=== PATIENT | female | born 1990 | race Caucasian/White ===

== ENCOUNTER 2016-05-06 00:33 | Emergency (ER) | payer OTHER ==
[~2016-05-06] VITALS: Ht 162.6 cm; Wt 81.6 kg
[~2016-05-06 00:33] MED LIST: IBUPROFEN600 MG ORAL; NKM; VIBRAMYCIN100 MG ORAL
--- NOTE | 2016-05-06 00:57 | Emergency Room Report ---
History of Present Illness General Chief Complaint: Abdominal Pain Source: Patient Present Illness HPI Is a 25-year-old female with no past medical history. She presents with chief complaint abdominal pain. Onset last night. She said pain to the right side. [place] nauseous. A repeat 2 hours ago. Had diarrhea also. Subjective fever and chills. No cough or congestion. No urinary complaint. Pain is 7/10 cramping in nature. Localized the right side. Allergies: Coded Allergies: No Known Allergies (Unverified , 10/18/13) Patient History Past Medical History: none, see triage record, old chart reviewed Past Surgical History: none Pertinent Family History: none Social History: Denies: smoking Last Menstrual Period: Apr Now: No Immunizations: other Reviewed Nursing Documentation: PMH: Agreed, PSxH: Agreed Nursing Documentation-PMH Past Medical History: No Stated History Review of Systems Constitutional: Reports: fever Gastrointestinal: Reports: abdominal pain, diarrhea, nausea Physical Exam Vital Signs Date Time Temp Pulse Resp B/P Pulse Ox O2 Delivery O2 Flow Rate FiO2 05/06/16 00:40 98.2 83 18 121/73 99 Room Air vitals normal Sp02 EP Interpretation: reviewed, normal General Appearance: well appearing, no apparent distress, alert, obese Head: normocephalic, atraumatic Eyes: bilateral eye EOMI, bilateral eye PERRL ENT: hearing grossly normal, normal pharynx Neck: full range of motion, supple, no meningismus Respiratory: chest non-tender, lungs clear, normal breath sounds Cardiovascular #1: regular rate, rhythm, no murmur Gastrointestinal: normal bowel sounds, no mass, no organomegaly, no bruit, non- distended, tenderness - Mild, right lower quadrant/rright flank pain Musculoskeletal: back normal, gait/station normal, normal range of motion Psychiatric: mood/affect normal Skin: warm/dry Medical Decision Making Diagnostic Impression: Primary Impression: Abdominal pain of unknown etiology ER Course With abdominal pain and no diarrhea. Probably a viral gastroenteritis. No evidence of acute abdomen. She felt better now. We'll discharge home. Lab Results Impression labs normal CT/MRI/US Diagnostic Results CT/MRI/US Diagnostic Results : Imaging Test Ordered: CT abdomen and plvis Impression negative per radiologist Last Vital Signs Date Time Temp Pulse Resp B/P Pulse Ox O2 Delivery O2 Flow Rate FiO2 05/06/16 00:40 98.2 83 18 121/73 99 Room Air Status: improved Disposition: HOME, SELF-CARE Condition: Stable Patient Instructions: Abdominal Pain, Adult Additional Instructions: Followup with your Dr. in 2-3 days. Return if symptom worsen. HAMIDA HERNADEZ M.D. May 06, 2016 00:57
[2016-05-06] MEDS ORDERED: Ketorolac 30mg Inj IV ONE (01:00)
[2016-05-06 01:27] LABS: BASOPHILS % (AUTO) 0.9 % (0.0-2.0); LYMPHOCYTES % (AUTO) 38.7 % (20.0-45.0); MEAN CORPUSCULAR HEMOGLOBIN 29.9 PG (27.0-31.0); MEAN CORPUSCULAR HGB CONC 32.9 G/DL (32.0-36.0); MEAN CORPUSCULAR VOLUME 91 FL (80-99); MEAN PLATELET VOLUME 9.3 FL (6.5-10.1); MONOCYTES % (AUTO) 6.6 % (1.0-10.0); NEUTROPHILS % (AUTO) 52.9 % (45.0-75.0); PLATELET COUNT 240 K/UL (150-450); RED BLOOD COUNT 4.14 M/UL (4.20-5.40); RED CELL DISTRIBUTION WIDTH 11.9 % (11.6-14.8); WHITE BLOOD COUNT 9.3 K/UL (4.8-10.8)
[2016-05-06 01:28] LABS: APPEARANCE,URINE CLEAR; KETONES,URINE NEGATIVE (NEGATIVE); LEUKOCYTE ESTERASE ,URINE NEGATIVE (NEGATIVE); NITRITE,URINE NEGATIVE (NEGATIVE); PH,URINE 6.5 (4.5-8.0); PROTEIN,URINE NEGATIVE (NEGATIVE); UROBILINOGEN,URINE 4 MG/DL (0.0-1.0)
[2016-05-06 01:38] LABS: ALANINE AMINOTRANSFERASE 15 U/L (3-33); ALBUMIN/GLOBULIN RATIO 1.1 (1.0-2.7); ANION GAP 14 (5-15); ASPARTATE AMINO TRANSFERASE 22 U/L (5-40); CALCIUM 8.9 mg/dL (8.6-10.2); CARBON DIOXIDE 24 mEQ/L (20-30); CHLORIDE 99 mEQ/L (98-107); CREATININE 0.7 mg/dL (0.5-0.9); GLOMERULAR FILTRATION RATE > 60 mL/min (>60); HEMOLYSIS 60; LIPASE 26 U/L (< 60); POTASSIUM 4.1 mEQ/L (3.4-4.9); SODIUM 137 mEQ/L (135-145); TOTAL PROTEIN 6.8 g/dL (6.6-8.7)
[2016-05-06 03:14] VITALS: BP_SYST 121; BP_SYST 124; BP_DIAS 73; BP_DIAS 74
--- NOTE | 2016-05-06 09:48 | Diagnostic Imaging Report ---
Clinical Indication: Abdominal pain Technique: No oral contrast utilized, per emergency room physician request IV administration nonionic contrast. Venous phase spiral acquisition obtained through the abdomen and pelvis. Multiplanar reconstructions were generated. Total dose length product 1017 mGycm. CTDIvol(s) 19 mGy Comparison: None Findings: The appendix is normal. No evidence of diverticulosis or diverticulitis. No small bowel distention. No free or loculated intraperitoneal air or fluid is evident. The distal esophagus, stomach, duodenum are unremarkable. The gallbladder is nondistended. The bile ducts are nondilated. The liver, pancreas, spleen, adrenals, kidneys are unremarkable. No pelvic mass or adenopathy. No retroperitoneal or mesenteric mass or adenopathy. Impression: Essentially unremarkable exam. No acute or significant abnormality demonstrated This agrees with the preliminary interpretation provided overnight by [facility]. The CT scanner at [facility] is accredited by the [employer] and the scans are performed using protocols designed to limit radiation exposure to as low as reasonably achievable to attain images of sufficient resolution adequate for diagnostic evaluation.
== END 2016-05-06 03:25 | disposition home or self-care (01) ==
LOC: EMR 00:59
DX: R10.9 Unspecified abdominal pain (principal)
CPT/HCPCS: 36415; 74177; 80053; 81003; 81025; 83690; 85025; 96360; 96374; 96375; 99284; J1885; J2405; Q9967

== ENCOUNTER 2016-05-17 01:35 | Emergency (ER) | payer OTHER ==
[~2016-05-17] VITALS: Ht 162.6 cm; Wt 79.4 kg
[2016-05-17 01:39] VITALS: BP 115/56
[2016-05-17 01:45] VITALS: BP 120/60
[2016-05-17] MEDS ORDERED: NKM (01:45)
[2016-05-17] MEDS ORDERED: AUGMENTIN 500-1 EACH ORAL (02:04)
--- NOTE | 2016-05-17 02:05 | Emergency Room Report ---
History of Present Illness General Chief Complaint: Earache Source: Patient Present Illness HPI Patient presents with 3 days of sore throat and left ear pain. She states there is swelling in the lymph nodes of her neck. She was exposed to some strep at her work. Feels aches and has pain when swallowing. Pain in throat is severe and burning and sharp. Radiates somewhat into anterior neck. No NVD, rashes, dysuria. Denies . Allergies: Coded Allergies: No Known Allergies (Unverified , 10/18/13) Patient History Past Medical History: see triage record Social History: Denies: smoking Social History Narrative works [employer] Last Menstrual Period: last month Reviewed Nursing Documentation: PMH: Agreed, PSxH: Agreed Nursing Documentation-PMH Past Medical History: No Stated History Review of Systems All Other Systems: negative except mentioned in HPI Physical Exam Vital Signs Date Time Temp Pulse Resp B/P Pulse Ox O2 Delivery O2 Flow Rate FiO2 05/17/16 01:39 99.3 115 18 115/56 99 Room Air Sp02 EP Interpretation: reviewed, normal General Appearance: well appearing, no apparent distress Head: normocephalic, atraumatic Eyes: bilateral eye PERRL, bilateral eye normal inspection ENT: tonsillar swelling, pharyngeal erythema, tonsillar exudate, other - L TM with erythema, R with cerumen Neck: full range of motion, supple, no meningismus, tender - min anterior nodes Respiratory: chest non-tender, lungs clear, normal breath sounds, no respiratory distress, speaking full sentences Cardiovascular #1: regular rate, rhythm Cardiovascular #2: 2+ radial (L) Gastrointestinal: normal bowel sounds, non tender, soft Musculoskeletal: back normal, digits/nails normal, gait/station normal, normal range of motion Neurologic: alert, normal gait, grossly normal Psychiatric: mood/affect normal Skin: no rash Lymphatic: adenopathy - ant neck Medical Decision Making Diagnostic Impression: Primary Impression: Earache, left Additional Impression: Pharyngitis ER Course Patient with throat and ear pain - exposed to strep. Exam c/w otitis and pharyngitis. Patient will be treated with antibiotics and decadron. No labs or imaging indicated. Patient requesting extra days off from work. Patient stable for outpatient observation and treatment Last Vital Signs Date Time Temp Pulse Resp B/P Pulse Ox O2 Delivery O2 Flow Rate FiO2 3/18/17 02:20 99.3 84 18 120/60 100 Room Air Status: improved Disposition: HOME, SELF-CARE Condition: Improved Scripts Amoxicillin/Potassium Clav 500-125 Tablet* (AUGMENTIN 500-125 TABLET*) 1 Each Tablet 1 TAB ORAL THREE TIMES A DAY, #21 TAB Prov: Bassem Clark M.D. 05/17/16 Departure Forms: Return to Work Return to Work in (Days): 2 Return to Work Date: May 19, 2016 Work Restrictions: None Patient Instructions: Pharyngitis, Otitis Media, Adult Additional Instructions: Salt water gargles. Tylenol or advil for fever and pain. Bassem Clark M.D. May 17, 2016 02:05
== END 2016-05-17 02:20 | disposition home or self-care (01) ==
LOC: EMR 01:57
DX: J02.9 Acute pharyngitis, unspecified (principal); H92.02 Otalgia, left ear
CPT/HCPCS: 99283; J8540